=== PATIENT | female | born 1960 | race Two or more races ===

== ENCOUNTER 2019-08-01 10:00 | Outpatient (CLI) | payer OTHER | END 2019-08-01 10:12 | disposition home or self-care (01) | LOC: LAB 10:00 | DX: S62.611A Displaced fracture of proximal phalanx of left index finger, initial encounter for closed fracture (principal) ==

== ENCOUNTER 2019-08-02 08:19 | Day surgery (SDC) | payer OTHER | END 2019-08-02 18:05 | disposition home or self-care (01) | LOC: CIR.AMB 08:19 | DX: S62.211 Bennett's fracture, right hand (principal) ==